=== PATIENT | female | born 1970 | race Caucasian/White ===

== ENCOUNTER 2021-05-09 11:41 | Inpatient (IN) ==
[2021-05-09] MEDS ORDERED: oxyCODONE/Acetamin 10/325(NF) TAB PO PRN (13:09)
[2021-05-09] MEDS ORDERED: oxyCODONE/Acetamin 5/325 mg TAB PO SCH (15:00)
[2021-05-09] MEDS ORDERED: oxyCODONE/Acetamin 10/325(NF) TAB PO SCH (17:00)
[2021-05-09 17:44] LABS: ABS Basophils 0.1 10^3/ul (0-0.2); ABS Eosinophils 0.4 10^3/ul (0-0.6); ABS Lymphocytes 3.2 10^3/ul (1.0-4.8); ABS Monocytes 0.6 10^3/ul (0-0.8); ABS Neutrophils 6.6 10^3/ul (1.5-7.7); Eosinophil % 3.3 %; Hematocrit 39 % (35-47); Hemoglobin 13.3 g/dL (12.0-16.0); Lymphocyte % 29.3 %; Mean Corpuscular HGB Conc 35 g/dL (31-36); Mean Corpuscular Hemoglobin 29 pg (27-31); Mean Corpuscular Volume 85 fL (80-97); Mean Platelet Volume 6.9 fL (7.4-10.4); Platelet Count 394 10^3/uL (150-450); Red Blood Count 4.56 10^6 /uL (3.70-4.87); Red Cell Distribution Width 15 % (10-15); White Blood Count 10.8 10^3/uL (3.5-10.8)
[2021-05-09 17:58] LABS: ALT 14 U/L (7-52); Albumin 3.8 g/dL (3.2-5.2); Alkaline Phosphatase 75 U/L (35-149); Blood Urea Nitrogen 13 mg/dL (6-24); CO2 Carbon Dioxide 29 mmol/L (22-32); Chloride 100 mmol/L (101-111); Globulin 3.7 g/dL (2-4); Glucose 92 mg/dL (70-100); Sodium 135 mmol/L (135-145); Total Protein 7.5 g/dL (6.4-8.9); eGFR CKD-EPI 107.6 (>60)
[2021-05-09 18:17] LABS: Anion Gap 6 mmol/L (2-11)
[2021-05-09] MEDS ORDERED: Potassium Chlor 20 meq TAB.ER PO ONE (19:35)
[2021-05-09 19:49] LABS: Potassium Redraw 4.2 mmol/L (3.5-5.0)
[2021-05-09] MEDS: Heparin 5000 UNITS/ML 1 mL VIAL SUBCUT SCH (22:51)
[2021-05-10] MEDS: Heparin 5000 UNITS/ML 1 mL VIAL SUBCUT SCH ×3 (06:24→20:38)
[2021-05-10] MEDS: DULoxetine DR 60 mg CAP PO SCH (09:10)
[2021-05-11] MEDS: Heparin 5000 UNITS/ML 1 mL VIAL SUBCUT SCH ×3 (06:17→22:05)
[2021-05-11] MEDS: DULoxetine DR 60 mg CAP PO SCH (09:53)
[2021-05-12] MEDS: Heparin 5000 UNITS/ML 1 mL VIAL SUBCUT SCH ×3 (06:35→21:37)
[2021-05-12] MEDS: DULoxetine DR 60 mg CAP PO SCH (08:41)
[2021-05-13] MEDS: Heparin 5000 UNITS/ML 1 mL VIAL SUBCUT SCH ×2 (07:05→13:09)
[2021-05-13 08:00] VITALS: BP 117/69
[2021-05-13] MEDS: DULoxetine DR 60 mg CAP PO SCH (08:30)
== END 2021-05-13 14:30 | disposition home or self-care (01) | DRG 347 ==
LOC: ED 11:41 → EDHOLD 16:13 → SUATTDRO 16:13 → EDHOLD 20:55 → SSU 22:42
PROVIDERS: ADMIT Internal Medicine; ATTEND Internal Medicine